=== PATIENT | female | born 1965 | race Caucasian/White ===

== ENCOUNTER 2017-03-20 15:43 | Outpatient (CLI) | payer MEDICARE, MEDICAID ==
[2017-03-20 16:23] LABS: #Basophils 0.1 thou/uL (0.0-0.2); #Eosinphils 0.1 thou/uL (0.0-0.7); #Lymphocytes 2.6 thou/uL (1.20-3.40); #Monocytes 0.5 thou/uL (0.11-0.59); %Basophils 0.7 % (0.0-1.0); %Eosinophils 1.1 % (0.0-10.0); %Lymphocytes 31.3 % (21.0-51.0); %Monocytes 5.9 % (0.0-10.0); Hematocrit 45.7 % (36.0-47.0); Mean Platelet Volume 9.4 fL (7.4-10.4); Red Blood Cell (RBC) Count 5.24 mill/uL (4.20-5.40); White Blood Cell (WBC) Count 8.2 thou/uL (4.8-10.8)
[2017-03-20 16:47] LABS: Anion Gap 13 mmol/L (10-20); BUN (Urea Nitrogen) 13 mg/dL (9.8-20.1); Calc. Creatinine Clearance 0 mL/min (70-130); Calcium 9.6 mg/dL (7.8-10.44); Carbon Dioxide 26 mmol/L (22-29); Chloride 108 mmol/L (98-107); Estimated GFR-MDRD Greater than 90
== END 2017-03-20 15:44 | disposition home or self-care (01) ==
LOC: LABBT 15:43
PROVIDERS: ATTEND Surgery
DX: Z01.818 Encounter for other preprocedural examination (principal); C34.90 Malignant neoplasm of unspecified part of unspecified bronchus or lung
CPT/HCPCS: 80048; 85025

== ENCOUNTER → 2017-03-25 | Day surgery (SDC) | payer MEDICARE, MEDICAID ==
[2017-03-20 15:56] VITALS: BMI 28.2
[~2017-03-25] MED LIST: Bupivacaine HCl 0.5%/Epinephrine 1:200,000/PF 30 ml Vial ONE; Fentanyl 100 MCG/2 ML VIAL ONE; Iothalamate Meglumine 60% 50 ML VIAL FS ONE; Midazolam HCl 2 mg/2 ml Vial ONE; Ondansetron HCl/PF 4 MG/2 ML Vial ONE; PHENYLEPHRINE-NS 100 MCG/ML 10 ML SYRINGE ONE; Propofol 200 MG/20 ML VIAL ONE; Propofol 500 MG/50 ML VIAL ONE
[2017-03-25 10:49] LABS: #Basophils 0.1 thou/uL (0.0-0.2); #Eosinphils 0.1 thou/uL (0.0-0.7); #Monocytes 0.4 thou/uL (0.11-0.59); #Neutrophils 6.8 thou/uL (1.40-6.50); %Basophils 0.9 % (0.0-1.0); %Eosinophils 0.9 % (0.0-10.0); %Lymphocytes 21.6 % (21.0-51.0); %Monocytes 4.6 % (0.0-10.0); Hematocrit 47.5 % (36.0-47.0); Mean Platelet Volume 9.2 fL (7.4-10.4); Red Blood Cell (RBC) Count 5.44 mill/uL (4.20-5.40); White Blood Cell (WBC) Count 9.4 thou/uL (4.8-10.8)
[2017-03-25 10:58] LABS: Anion Gap 12 mmol/L (10-20); BUN (Urea Nitrogen) 12 mg/dL (9.8-20.1); Calc. Creatinine Clearance 102 mL/min (70-130); Calcium 9.8 mg/dL (7.8-10.44); Carbon Dioxide 27 mmol/L (22-29); Chloride 106 mmol/L (98-107); Estimated GFR-MDRD Greater than 90
--- NOTE | 2017-03-25 16:08 | RAD ---
FRONTAL VIEW CHEST 03/25/17 COMPARISON: 02/26/05 radiographs. FINDINGS: There is a left chest port with tip overlying SVC. No consolidation, effusion or pneumothorax. Cardi ac silhouette is within normal limits. Partially imaged linear radiopaque density overlies the parti ally imaged right upper extremity which may be related to indwelling hardware although is not fully visualized. IMPRESSION: No focal consolidation. POS: SUSY
--- NOTE | 2017-03-28 17:32 | PDOC.OP ---
Operative Note - Operative Note Operative Note: PROCEDURE: Left subclavian MediPort placement with fluoroscopic guidance SURGEON: Suzie Heaton M.D. DATE OF PROCEDURE: 03/25/2017 PREOPERATIVE DIAGNOSIS: Metastatic adenocarcinoma POSTOPERATIVE DIAGNOSIS: Metastatic adenocarcinoma HISTORY: Patient is diagnosed with cancer metastatic to multiple bones and likely with gastrointestinal primary. Chemotherapy has been recommended and the oncologist has requested MediPort placement for this. OPERATIVE PROCEDURE IN DETAIL: After informed consent was obtained and appropriate preoperative antibiotics were administered, the patient was taken to the operating room and placed in supine position and monitored anesthesia care was administered. The patient was then placed in Trendelenburg position and the subclavian vein accessed easily on the first attempt with excellent flow of dark venous non-pulsatile blood. A wire threaded easily and was confirmed to be in the superior vena cava by fluoroscopy. Additional local anesthesia was infused to the skin and subcutaneous tissues lateral and inferior to the access site. The skin incision was extended from the wire laterally and a subcutaneous pocket developed inferiorly. A Mediport was obtained and confirmed to fit in the subcutaneous pocket. This was secured inferiorly to the pectoralis fascia with a Prolene suture, which was clamped, but not tied. The dilator and sheath were then placed over the wire and the dilator and wire removed leaving the sheath in place. The clamped MediPort tubing was tunneled through the sheath, which was then split and removed leaving the MediPort tubing in place. The tubing was adjusted until the tip was confirmed by fluoroscopy to be in the superior vena cava just above the atrium. The tubing was clamped at the skin level and cut and the tubing secured to the port, which was then placed in the subcutaneous pocket. The previously placed suture was secured and two additional sutures were placed to fix the port in place within the pocket. The port was aspirated with the Montes needle and had excellent flow of dark venous non-pulsatile blood and easily flushed without resistance. The subcutaneous tissues were closed with a running Monocryl suture, following which the skin was closed with a running subcuticular Monocryl suture. Dermabond dressings were placed and the hub was again accessed through the skin and confirmed to easily aspirate and easily flush. The course of the catheter was confirmed by fluoroscopy to be smooth with the tip appropriately located in the superior vena cava. The patient was taken her back to the day stay unit in good condition. Estimated blood loss was minimal. There were no complications. There were no specimens.
== END ==
LOC: SDC 09:55
PROVIDERS: ATTEND Surgery
PROC: 05H633Z Insertion of Infusion Device into Left Subclavian Vein, Percutaneous Approach (ICD-10-PCS; principal; 2017-03-25)
PROC: B517ZZA Fluoroscopy of Left Subclavian Vein, Guidance (ICD-10-PCS; 2017-03-25)
DX: C79.9 Secondary malignant neoplasm of unspecified site (principal); C80.1 Malignant (primary) neoplasm, unspecified; F31.9 Bipolar disorder, unspecified; F41.9 Anxiety disorder, unspecified; G43.909 Migraine, unspecified, not intractable, without status migrainosus; M79.7 Fibromyalgia; F17.210 Nicotine dependence, cigarettes, uncomplicated; Z98.891 History of uterine scar from previous surgery; Z90.710 Acquired absence of both cervix and uterus; Z98.51 Tubal ligation status; Z91.030 Bee allergy status; Z91.018 Allergy to other foods; Z88.1 Allergy status to other antibiotic agents; Z88.5 Allergy status to narcotic agent
CPT/HCPCS: 36561; 71010; 77001; 80048; 85025; C1788; 36415; J0670; J1642; J2250; J2405; J2704; J3010; Q9961

== ENCOUNTER 2017-04-17 11:35 | Day surgery (SDC) | payer MEDICARE, MEDICAID ==
[2017-04-16 15:21] VITALS: BMI 27.1
[2017-04-17] MEDS ORDERED: Fentanyl 100 MCG/2 ML VIAL ONE ×3 (14:29→16:07)
[2017-04-17] MEDS ORDERED: Midazolam HCl 2 mg/2 ml Vial ONE (14:29)
[2017-04-17] MEDS ORDERED: CEFAZOLIN/Water 2 GM/20 ML SYRINGE ONE (14:34)
[2017-04-17] MEDS ORDERED: Dexamethasone 20 MG/5 ML VIAL ONE (14:50)
[2017-04-17] MEDS ORDERED: Ondansetron HCl/PF 4 MG/2 ML Vial ONE (14:50)
[2017-04-17] MEDS ORDERED: Propofol 200 MG/20 ML VIAL ONE (14:50)
[2017-04-17] MEDS ORDERED: Metoclopramide HCl 10 MG/2 ML VIAL ONE (14:50)
[2017-04-17] MEDS ORDERED: Lidocaine 1% PF 5 ML VIAL ONE (14:50)
[2017-04-17] MEDS ORDERED: Glycopyrrolate 0.2 MG/ML 5 ML SYRINGE ONE (14:50)
[2017-04-17] MEDS ORDERED: Morphine 2 MG/ML SYRINGE ONE (16:37)
--- NOTE | 2017-04-18 01:47 | OP ---
DATE OF SURGERY: 04/17/2017 PREOPERATIVE DIAGNOSIS: Right humeral pathologic fracture with symptomatic retained hardware. POSTOPERATIVE DIAGNOSIS: Right humeral pathologic fracture with symptomatic retained hardware. SURGICAL PROCEDURE: Revision of right humeral titanium elastic nail. ANESTHESIA: General. SURGEON: Tulio Hood M.D. ESTIMATED BLOOD LOSS: 5 mL. SPECIMEN: None. DRAINS: None. OUTCOME: Satisfactory. INDICATIONS: The patient is a very pleasant 52-year-old lady, who has a history of metastatic cance r with pathologic fracture of the distal humerus. This was stabilized with three titanium elastic n ails inserted from the greater tuberosity of the proximal humerus down the shaft and then flared in the supracondylar region. These pins were cut proud of the bone, but unfortunately are now causing an impingement at the shoulder. The patient does have cancer, which is metastatic and as such, we d id have a long discussion regarding hardware removal versus revision given the fact that she is at r k for further pathologic tumors. We would like to keep the nails in place. The patient does not feel the need to be removed given her diagnosis and disease. As such, she is taken to the operating room for revision and to drive these nails further in so they are not proud of the greater tuberosi ty. PROCEDURE: After the induction of general anesthesia, the patient was positioned in a beach chair p osition and then a sterile prep and drape was performed of the right upper extremity. Next, using t he previous scar as a guide, a skin incision was made at the proximal humerus and then blunt dissect ion was carried down through the deltoid such that the tip of the nails could be identified and palp ated. Next, using the appropriate helper/driver each of the 3 nails were driven such that they were below the cortical surface of the proximal humerus. Once performed, AP, lateral C-arm images were obtaine d to confirm still at acceptable position of the nails. Once done, the wound was then irrigated wit h normal saline and then closed with a simple nylon closure. A Xeroform gauze and tape dressing was applied to the shoulder and then the patient was transferred to recovery room in stable condition. There were no complications. She tolerated the procedure well.
--- NOTE | 2017-04-18 08:36 | RAD ---
INTRAOPERATIVE FLUOROSCOPY: Date: 04/17/17 EXPOSURE: 10.8 seconds. 0.38 mGy*cm\S\2. HISTORY: Internal fixation. Humerus fracture. FINDINGS: Three metallic K wires traverse the humerus. IMPRESSION: Fluoroscopy as above. POS: SUSY
== END 2017-04-17 17:35 | disposition home or self-care (01) ==
LOC: SDC 11:35
PROVIDERS: ATTEND Orthopaedic Surgery
PROC: 0PW Upper Bones, Revision (ICD-10-PCS; principal; 2017-04-17)
DX: M84.421D Pathological fracture, right humerus, subsequent encounter for fracture with routine healing (principal); G43.909 Migraine, unspecified, not intractable, without status migrainosus; F31.9 Bipolar disorder, unspecified; M79.7 Fibromyalgia; Z98.1 Arthrodesis status; Z88.8 Allergy status to other drugs, medicaments and biological substances; Z88.1 Allergy status to other antibiotic agents; Z79.899 Other long term (current) drug therapy; Z90.710 Acquired absence of both cervix and uterus; Z98.890 Other specified postprocedural states
CPT/HCPCS: 76000; 96374; J1100; J2001; J2250; J2270; J2405; J2704; J2765; J3010

== ENCOUNTER 2017-05-12 09:56 | Outpatient (CLI) | payer MEDICARE, MEDICAID ==
[2017-05-12] MEDS ORDERED: Iopamidol 370 76% 100 ML VIAL ONE (13:45)
--- NOTE | 2017-05-12 14:08 | CT ---
CT ABDOMEN AND PELVIS WITH AND WITHOUT CONTRAST: HISTORY: Stage IV pancreatic cancer. Chemo and radiation. R10.32 (left inguinal pain). COMPARISON: PET CT from 03/11/2017. FINDINGS: The contrast imaging through the liver demonstrates cholelithiasis. There are punctate calculi withi n the left renal collecting system. The pancreas is unremarkable. No dilated loops of large or small bowel. No intrahepatic or extrahepatic biliary dilatation. Trace free fluid in the pelvis. There are left gonadal vein phleboliths. The pancreas is visualized and is normal. No adenopathy in the abdomen. Evidence of prior left inguinal hernia repair. Mild articular disease in the sigmoid colon without a ctive inflammation. The aorta and iliac contour is nonaneurysmal. Bilateral pars interarticularis defects with L5 anterolisthesis. This anterolisthesis is approximate ly 5 mm. There appears to be a bone island within the left acetabulum. There is an abnormal peripherally scle rotic and essentially hypodense area within the left L2 vertebral body, measuring approximately 8 mm. Of note, this area does not have any abnormal signal characteristics from the abnormal metabolism o n the PET CT. There is a well defined lucency within the T12 and T11 vertebral bodies, which are new from the comparison CT from 2016 and are concerning for osseous metastatic disease. This involves t he T11 vertebral body mass, measuring up to 1.5 cm, and T12 measures up to 1.7 cm. There appears to be associated soft tissue breakthrough of mass involved with this. No definite posterior paraspinal component is appreciated. IMPRESSION: 1. New from the 2016 examination, multiple lytic lucencies of T11 and T12, as well as L2 and L1, wit h a compression deformity through the lucency at L1. This is concerning for metastatic disease. The re is also associated soft tissue component with this. MRI with and without contrast would likely be beneficial in this patient. 2. Cholelithiasis. The gallbladder does appear somewhat contracted with some hypodense foci within it. 3. No evidence for pancreatic malignancy. 4. Punctate left-sided renal calculi, which are not obstructive. POS: SUSY
== END 2017-05-12 09:57 | disposition home or self-care (01) ==
LOC: CT 09:56
PROVIDERS: ATTEND Specialist
DX: R10.32 Left lower quadrant pain (principal); K80.20 Calculus of gallbladder without cholecystitis without obstruction; N20.0 Calculus of kidney; C79.51 Secondary malignant neoplasm of bone
CPT/HCPCS: 74178; 80053; 82248; 83615; 84100; 84550

== ENCOUNTER 2017-05-13 15:16 | Outpatient (CLI) | payer MEDICARE, MEDICAID ==
[~2017-05-13 15:16] MED LIST changes: -Bupivacaine HCl 0.5%/Epinephrine 1:200,000/PF 30 ml Vial ONE; -Fentanyl 100 MCG/2 ML VIAL ONE; +Gadobenate Dimeglumine 529 MG/1 ML (20ML VIAL) ONE; -Iothalamate Meglumine 60% 50 ML VIAL FS ONE; -Midazolam HCl 2 mg/2 ml Vial ONE; -Ondansetron HCl/PF 4 MG/2 ML Vial ONE; -PHENYLEPHRINE-NS 100 MCG/ML 10 ML SYRINGE ONE; -Propofol 200 MG/20 ML VIAL ONE; -Propofol 500 MG/50 ML VIAL ONE
--- NOTE | 2017-05-13 18:26 | MRI ---
MRI CERVICAL SPINE WITH AND WITHOUT CONTRAST 05/13/17 Multiplanar and multisequential imaging cervical spine obtained. Postcontrast images obtained after t he administration of 11 mL of Multihance IV. HISTORY: Previous cervical spine surgery. Chronic cervical pain and neck pain. History pancreatic CA FINDINGS: There has been prior fusion procedure at C5-6. Metallic plate and screws transfix this level. The met allic artifact obscures detail at these levels. The cervical vertebrae maintain height and alignment. There is no evidence of significant disc bulge or protrusion. There is no impingement on the cord. T here is no cervical canal stenosis identified. Postcontrast images show diffuse enhancement involving the C4 vertebra. There is also mild enhancemen t involving the C7 vertebra. STIR sequence also shows increased signal in the C4 vertebra indicating edema. No significant edema seen in the C7 vertebra on STIR sequence. There is focal edema and enhanc ement involving the anterior inferior corner of the T1 vertebrae. There is no height loss involving a ny of the vertebrae. There is no epidural or paravertebral soft tissue enhancement. There is a slight disc bulge at C4-5 mildly flattening the thecal sac; however, the anterior subarachnoid space is pre served and there is no cord impingement. Cord signal is normal. IMPRESSION: Edema and enhancement involving the C4 vertebra. Mild enhancement involving T1 and some focal enhance ment involving the anterior inferior aspect of T2 vertebra. Metastatic disease considered most likely . See MRI lumbar spine. POS: SUSY
--- NOTE | 2017-05-13 20:39 | MRI ---
MRI LUMBAR SPINE WITH AND WITHOUT CONTRAST 05/13/17 Multiplanar and multisequential imaging of the lumbar spine obtained. Postcontrast images obtained wi th administration of 11 mL of Multihance IV. HISTORY: Low back pain. Radiation to both legs. Numbness and tingling in lower extremities. There is a history of pancreatic cancer. FINDINGS: Lumbar vertebrae maintain normal height and alignment. Disc spaces are preserved. No significant disc bulge or disc protrusion seen at L1-2, L2-3, L3-4, or L4-5 levels. There is facet arthrosis and hype rtrophy at these levels; however, no significant central canal stenosis. At L5-S1, there is a diffuse disc bulge present abutting the thecal sac. No evidence of central canal or foraminal stenosis. There is abnormal signal in multiple visualized vertebrae. There is abnormal STIR signal and enhancem ent involving T11, T12, L1, and L2 vertebrae. There is also enhancement involving the superior portio n of L5 extending to the superior end plate. There is no compression deformity present. There is exte nsion into the posterior elements involving pedicle and lamina on the right side at L1. Evidence of s ome early pedicle involvement on the right at T11 and T12. There is also abnormal signal seen in the sacrum to the right at the S2 level with enhancement. IMPRESSION: 1. Abnormal signal seen in multiple vertebral bodies as described above consistent with metastat ic disease. 2. Mild diffuse disc bulge at L5-S1 as described. POS: SUSY
== END 2017-05-13 15:17 | disposition home or self-care (01) ==
LOC: SCSMRI 15:16
PROVIDERS: ATTEND Physical Medicine & Rehabilitation
DX: M54.2 Cervicalgia (principal); M54.5 Low back pain; M51.36 Other intervertebral disc degeneration, lumbar region
CPT/HCPCS: 72156; 72158; A9579